=== PATIENT | male | born 1965 | race Caucasian/White ===

== ENCOUNTER 2020-12-31 09:19 | Emergency (ER) | payer SELFPAY ==
[~2020-12-31] VITALS: Ht 172.7 cm; Wt 72.6 kg
[2020-12-31 09:31] VITALS: BP 104/72
--- NOTE | 2020-12-31 09:42 | NUR ---
DR CAVANAUGH AT BEDSIDE FOR EVAL
[2020-12-31] MEDS ORDERED: ALBU8.5H8 INH (09:44)
[2020-12-31] MEDS ORDERED: ONDA4TAB5 PO (09:44)
--- NOTE | 2020-12-31 09:50 | NUR ---
covid swab collected and sent to lab.
--- NOTE | 2020-12-31 09:53 | NUR ---
Patient discharged to home in stable condition. Written and verbal after care instructions given. Patient verbalizes understanding of instruction.
== END 2020-12-31 09:53 | disposition home or self-care (01) ==
LOC: ER 09:23
DX: R05.9 Cough, unspecified (principal); Z20.822 Contact with and (suspected) exposure to COVID-19
CPT/HCPCS: 87426; 99283; C9803